=== PATIENT | female | born 1975 | race Native Hawaiian/Other Pacific Islander ===

== ENCOUNTER 2018-03-14 08:57 | Outpatient (CLI) | payer OTHER | END 2018-03-14 19:52 | disposition home or self-care (01) | LOC: MAMMO 08:57 | DX: Z12.31 Encounter for screening mammogram for malignant neoplasm of breast (principal) ==

== ENCOUNTER 2019-04-05 08:00 | Outpatient (CLI) | payer OTHER | END 2019-04-05 19:14 | disposition home or self-care (01) | LOC: MAMMO 08:00 | DX: Z12.31 Encounter for screening mammogram for malignant neoplasm of breast (principal) ==

== ENCOUNTER 2020-07-18 15:20 | Outpatient (CLI) | payer OTHER | END 2020-07-19 00:01 | disposition home or self-care (01) | LOC: MAMMO 15:20 | DX: Z12.31 Encounter for screening mammogram for malignant neoplasm of breast (principal) ==

== ENCOUNTER 2021-09-04 09:15 | Outpatient (CLI) | payer OTHER | END 2021-09-04 21:01 | disposition home or self-care (01) | LOC: MAMMO 09:15 | PROVIDERS: ATTEND Nurse Practitioner | DX: Z12.31 Encounter for screening mammogram for malignant neoplasm of breast (principal) ==

== ENCOUNTER 2022-09-16 08:18 | Outpatient (CLI) | payer OTHER | END 2022-09-16 19:48 | disposition home or self-care (01) | LOC: MAMMO 08:18 | PROVIDERS: ATTEND Nurse Practitioner | DX: Z12.31 Encounter for screening mammogram for malignant neoplasm of breast (principal) ==